=== PATIENT | female | born 1985 | race Asian ===

== ENCOUNTER 2018-08-20 23:59 | Emergency (ER) | payer OTHER ==
[~2018-08-20] VITALS: Ht 160 cm; Wt 63.5 kg
[2018-08-21 00:02] VITALS: BP 117/61; Ht 160 cm; Wt 63.5 kg
[2018-08-21 01:22] LABS: CALCIUM 9.4 mg/dL (8.5-10.1); CARBON DIOXIDE 22.2 mmol/L (21-32); CHLORIDE SERUM 103 mmol/L (98-107); CREATININE SERUM 0.6 mg/dL (0.6-1.0); GFR1 > 60 mL/min; GLUCOSE SERUM 102 mg/dL (74-106); POTASSIUM SERUM 3.7 mmol/L (3.5-5.1); SODIUM SERUM 136 mmol/L (136-145)
[2018-08-21 01:33] LABS: ALBUMIN 3.6 g/dL (3.4-5.0); ALKALINE PHOSPHATASE 89 U/L (46-116); ALT/SGPT 18 U/L (14-59); AST/SGOT 9 U/L (15-37); BILIRUBIN TOTAL 0.11 mg/dL (0.20-1.00); TOTAL PROTEIN, SERUM 7.5 g/dL (6.4-8.2)
== END 2018-08-21 00:52 | disposition home or self-care (01) ==
LOC: ED 23:59
PROVIDERS: Emergency Medicine
DX: S61.233A Puncture wound without foreign body of left middle finger without damage to nail, initial encounter (principal); W46.1XXA Contact with contaminated hypodermic needle, initial encounter; Y93.89 Activity, other specified; Y92.89 Other specified places as the place of occurrence of the external cause; Y99.8 Other external cause status
CPT/HCPCS: 36415

== ENCOUNTER 2018-12-11 18:07 | Emergency (ER) | payer OTHER ==
[~2018-12-11] VITALS: Ht 160 cm; Wt 61.2 kg
[2018-12-11 18:09] VITALS: BP 127/43; Ht 160 cm; Wt 61.2 kg
== END 2018-12-11 20:27 | disposition home or self-care (01) ==
LOC: ED 18:07
DX: S61.402A Unspecified open wound of left hand, initial encounter (principal); W46.1XXA Contact with contaminated hypodermic needle, initial encounter; Y93.89 Activity, other specified; Y92.89 Other specified places as the place of occurrence of the external cause; Y99.8 Other external cause status